=== PATIENT | female | born 1975 | race African-American/Black ===

== ENCOUNTER 2020-08-29 15:50 | Outpatient (REF) | payer OTHER, SELFPAY | END 2020-08-29 15:51 | disposition home or self-care (01) | LOC: HO.LAB 15:50 | PROVIDERS: Visit Provider Internal Medicine | DX: Z20.828 Contact with and (suspected) exposure to other viral communicable diseases (principal) | CPT/HCPCS: C9803; U0003 ==

== ENCOUNTER 2021-11-28 07:46 | Outpatient (REF) | payer OTHER, SELFPAY ==
--- NOTE | ~2021-11-28 | MM_ITS ---
EXAMINATION: MM SCREENING DIGITAL BREAST TOMOSYNTHESIS, BILATERAL CLINICAL INFORMATION: Screening. Asymptomatic. Benign left breast biopsy 06/02/2015 (Fibroadipose tissue and glandular breast tissue with focally dense sclerotic stroma. A fibroadenoma cannot be excluded. Focal sclerosing adenosis is also noted. No evidence of malignancy). The lifetime risk of breast cancer based on the Tyrer-Cuzick Model is 9%. COMPARISON: Mammography: 04/14/2019, 04/10/2018, 02/06/2016, 06/02/2015, 05/27/2015 TECHNIQUE: Digital breast tomosynthesis is performed in both the craniocaudal and mediolateral oblique views along with computer-aided detection (CAD). Synthesized 2D images are generated from the tomosynthesis. FINDINGS: There are scattered areas of fibroglandular density (ACR BI-RADS breast composition Category b). There are no significant masses, abnormal calcifications, or other abnormalities. Breast tissue composition borders on heterogeneously dense. There are scattered shifting fibroglandular parenchymal densities overall similar to prior studies. Biopsy clip marker noted on left anterior 6:00 position. There are no significant changes. MM/MM tomosynthesis screening BI IMPRESSION: There are no significant changes from prior study. ASSESSMENT: BI-RADS 2: Benign RECOMMENDATION: Routine annual mammography screening. This patient's information was entered into a reminder system with a target due date for their next mammogram.
== END 2021-11-28 07:47 | disposition home or self-care (01) ==
LOC: HO.MAMMO 07:46
PROVIDERS: PCP Registered Nurse Community Health; Visit Provider Registered Nurse Community Health
DX: Z12.31 Encounter for screening mammogram for malignant neoplasm of breast (principal)
CPT/HCPCS: 77063; 77067

== ENCOUNTER 2023-08-28 19:46 | Outpatient (REF) | payer OTHER, SELFPAY ==
[2023-08-31 13:45] LABS: H Pylori Breath Test Negative (Negative)
== END 2023-08-28 19:47 | disposition home or self-care (01) ==
LOC: HO.HHCLNP 19:46
PROVIDERS: Visit Provider Family Medicine
DX: R10.13 Epigastric pain (principal)
CPT/HCPCS: 83013

== ENCOUNTER 2023-09-04 13:27 | Outpatient (REF) | payer OTHER, SELFPAY ==
[2023-09-04 14:43] LABS: Hematocrit 35.4 % (37.0-47.0); Hemoglobin 11.7 g/dl (12.0-16.0); Mean Corpuscular HGB Conc 33.1 g/dl (31.0-35.0); Mean Corpuscular Hemoglobin 29.7 pg (27.0-33.0); Mean Corpuscular Volume 89.8 fL (80.0-98.0); Mean Platelet Volume 9.6 fL (9.4-12.3); Platelet Count 320 X10*3/uL (160-400); Red Blood Count 3.94 X10*6/uL (4.20-5.50); Red Cell Distribution Width 12.3 % (11.0-16.0); White Blood Count 6.1 X10*3/uL (4.8-10.8)
[2023-09-04 15:14] LABS: Alanine Aminotransferase 11 U/L (0-31); Albumin Level 3.7 g/dL (3.5-5.0); Alkaline Phosphatase 55 U/L (39-117); Amylase 65 U/L (28-100); Anion Gap 12 (12-20); Aspartate Amino Transferase 14 U/L (5-31); Bilirubin Direct 0.1 mg/dL (0.0-0.5); Bilirubin Total 0.3 mg/dL (0.0-1.0); Blood Urea Nitrogen 11 mg/dL (9-16); Carbon Dioxide 24 mmol/L (22-29); Chloride 107 mmol/L (96-108); Estimated Glomerular Filt Rate > 60; Glucose Random 80 mg/dL (60-115); Lipase 29 U/L (8-78); Sodium 139 mmol/L (135-145); Total Protein 7.5 g/dL (6.5-8.0)
== END 2023-09-04 13:28 | disposition home or self-care (01) ==
LOC: HO.LAB 13:27
PROVIDERS: PCP Registered Nurse Community Health; Visit Provider Family Medicine
DX: R10.13 Epigastric pain (principal)
CPT/HCPCS: 36415; 80048; 80076; 82150; 83690; 85027

== ENCOUNTER 2024-06-20 08:54 | Outpatient (REF) | payer OTHER, SELFPAY ==
[2024-06-20 09:35] LABS: Hematocrit 36.1 % (37.0-47.0); Hemoglobin 11.8 g/dl (12.0-16.0); Mean Corpuscular HGB Conc 32.7 g/dl (31.0-35.0); Mean Corpuscular Hemoglobin 29.5 pg (27.0-33.0); Mean Corpuscular Volume 90.3 fL (80.0-98.0); Mean Platelet Volume 9.4 fL (9.4-12.3); Platelet Count 282 X10*3/uL (160-400); Red Cell Distribution Width 12.1 % (11.0-16.0); White Blood Count 5.6 X10*3/uL (4.8-10.8)
[2024-06-20 09:43] LABS: Estimated Average Glucose 114 mg/dL; Hemoglobin A1c % 5.6 % (<6.0)
[2024-06-20 10:19] LABS: Alanine Aminotransferase 19 U/L (0-31); Albumin Level 3.7 g/dL (3.5-5.0); Alkaline Phosphatase 69 U/L (39-117); Anion Gap 11 (12-20); Aspartate Amino Transferase 15 U/L (5-31); Bilirubin Direct < 0.2 mg/dL (0.0-0.5); Bilirubin Total 0.2 mg/dL (0.0-1.0); Blood Urea Nitrogen 12 mg/dL (9-16); Calcium 9.5 mg/dL (8.4-10.2); Carbon Dioxide 23 mmol/L (22-29); Chloride 108 mmol/L (96-108); Cholesterol 212 mg/dL (<200); Estimated Glomerular Filt Rate > 60; Glucose Random 112 mg/dL (60-115); HDL Cholesterol 47 mg/dL (>40); LDL Cholesterol Calculated 147 mg/dL (<100); Potassium 4.4 mmol/L (3.3-5.1); Sodium 138 mmol/L (135-145); Total Protein 7.7 g/dL (6.5-8.0); Triglycerides 93 mg/dL (<150)
[2024-06-20 10:38] LABS: Free T4 (Free Thyroxine) 1.12 ng/dL (0.71-1.85); Thyroid Stimulating Hormone 0.36 uIU/mL (0.32-4.0); Vitamin D 25-OH Total 19.8 ng/mL (>30)
[2024-06-20 10:51] LABS: Creatinine Urine 188.56 mg/dL; Microalbum/Creatinine Ratio Ur 6.8 ug/mg cr (<30)
== END 2024-06-20 08:55 | disposition home or self-care (01) ==
LOC: HO.LAB 08:54
PROVIDERS: PCP Family Medicine; Visit Provider Family Medicine
DX: I10 Essential (primary) hypertension (principal); Z13.1 Encounter for screening for diabetes mellitus
CPT/HCPCS: 36415; 80048; 80061; 80076; 82043; 82306; 82570; 83036; 84439; 84443; 85027

== ENCOUNTER → 2024-07-08 13:56 | Outpatient (REF) | payer OTHER, SELFPAY ==
--- NOTE | ~2024-07-08 | US_ITS ---
EXAMINATION: US EXTRACRANIAL CAROTID DUPLEX, BILATERAL CLINICAL INFORMATION: Dizziness COMPARISON: Thyroid uptake and scan 08/31/2015 TECHNIQUE: Real-time ultrasound and Doppler techniques (integrating B-mode 2-D vascular images, Doppler spectral analysis and color-flow Doppler imaging) were utilized to interrogate the extracranial carotid arteries, the vertebral arteries and proximal subclavian arteries bilaterally. The degree of stenosis is determined by criteria similar to NASCET. FINDINGS: Right Side: 1. There is no visible atherosclerotic plaque seen in the bifurcation/proximal ICA region. 2. The common carotid artery PSV proximally is 95.7 cm/s and distally 71.6 cm/s. 3. The proximal internal carotid artery velocities are 120 cm/s systolic and 52.5 cm/s diastolic. 4. The proximal external carotid artery PSV is 72 cm/s. 5. The vertebral artery shows antegrade flow. 6. The subclavian artery waveforms are normal. Left Side: 1. There is no visible atherosclerotic plaque seen in the bifurcation/proximal ICA region. 2. The common carotid artery PSV proximally is 122 cm/s and distally 89.5 cm/s. 3. The proximal internal carotid artery velocities are 102 cm/s systolic and 37.1 cm/s diastolic. 4. The proximal external carotid artery PSV is 52.1 cm/s. 5. The vertebral artery shows antegrade flow. 6. The subclavian artery waveforms are normal. Incidentally at the mid to lower pole of the right thyroid lobe there is a 1.1 x 0.8 x 0.9 cm nodule Size: 1.1 x 0.8 x 0.9 cm, Nodule characteristics: Composition: Solid (2). Echogenicity: Hypoechoic (2). Shape: Not taller than wide (0). Margins: Smooth (0). Echogenic Foci: None (0). ACR TI-RADS total points: 4 ACR TI-RADS category: TR 4 There is also a nodule identified at the upper pole of the left thyroid lobe Size: 1.5 x 0.7 x 1.2 cm, Nodule characteristics: Composition: Solid (2). Echogenicity: Hypoechoic (2). Shape: Not taller than wide (0). Margins: Smooth (0). Echogenic Foci: None (0). ACR TI-RADS total points: 4 ACR TI-RADS category: 4 US/US carotid duplex BI IMPRESSION: 1. RIGHT: Normal right internal carotid artery without atherosclerotic plaque or hemodynamically significant stenosis. 2. LEFT: Normal left internal carotid artery without atherosclerotic plaque or hemodynamically significant stenosis. 3. There are incidental bilateral thyroid nodules, each of which would be a TIRADS Category 4 nodule, the larger nodule is on the left at the upper pole and measures 1.5 cm in greatest dimension. Ideally, further evaluation could be obtained with dedicated thyroid ultrasound. ACR TI-RADS RECOMMENDATION REFERENCE: Ultrasound-guided fine-needle aspiration, followup ultrasound, no further follow up. * TR1 (0 point) and TR2 (2 points): No FNA or follow up. * TR3 (3 points): FNA if more than or equal to 2.5 cm in maximum dimension, followup ultrasound in 1, 3 and 5 years if 1.5 to 2.4 cm in maximum dimension. * TR4 (4-6 points): FNA if more than or equal to 1.5 cm in maximum dimension, followup ultrasound in 1, 2, 3 and 5 years if 1 to 1.4 cm in maximum dimension. * TR5 (more than or equal to 7 points): FNA if more than or equal to 1 cm in maximum dimension, followup ultrasound every year for 5 years if 0.5 to 0.9 cm in maximum dimension. * TR3, TR4 or TR5 nodules that are below the size threshold for followup receive no follow up. Electronically signed by: Steven Becerra MD 07/16/2024 02:55 PM EDT
--- NOTE | 2024-07-08 14:11 | CA_ITS ---
Transthoracic Echocardiogram Patient (Last, First, Middle): Stacie Coronado A Gender: Female Date of : 1975 Age: 48 Procedure Date: 07/08/2024 Procedure Type: Transthoracic Echocardiogram Location: OP Height: 154.94 cm Weight: 82.56 kg BSA: 1.81 m2 Heart Rate: bpm BP: 116 / 76 mmHg Underwear Trimmer: ANG Referring MD: Priyanka Hernandez DO Symptoms: NEW ONSET DIZZINESS Study Quality: Adequate ECG Rhythm: Sinus Conclusions: - The left ventricular systolic function is normal. The calculated ejection fraction is 57% by biplane method. - No obvious valvular pathology seen on this study. Findings Left Ventricle Normal left ventricular cavity size. There is normal left ventricular wall thickness. The left ventricular systolic function is normal. The calculated ejection fraction is 57% by biplane method. There is no evidence of regional wall motion abnormalities. Diastolic function is normal for age. Right Ventricle Normal right ventricular cavity size and systolic function. Atria Both atria are normal in size. Aortic Valve There is a normal trileaflet aortic valve. There is no aortic valve stenosis. There is no aortic valve regurgitation. Mitral Valve The mitral valve appears normal. There is no mitral valve regurgitation. There is no mitral valve stenosis. Pulmonic Valve The pulmonic valve is likely normal. Tricuspid Valve There is trace tricuspid valve regurgitation. There is no evidence of pulmonary hypertension. Great Vessels The asc aorta and aortic arch are normal in size. Venous The inferior vena cava is normal in size and collapses greater than 50% with inspiration. Pericardium/Pleural There is no evidence of pericardial effusion. Prior Study Comparison No significant change compared to prior study dated: 05/19/2018. Recommendations, Care & Conclusions No obvious valvular pathology seen on this study. Measurements 2D Linear Measurements IVSd: 0.96 0.6-0.9/0.6-1.0 cm LVIDd: 4.81 3.9-5.3/4.2-5.9 cm LVIDd Index: 2.66 2.4-3.2/2.2-3.1 cm/m2 LVIDs: 3.36 2.0-3.6 cm LVPWd: 0.84 0.7-1.1 cm LA Diam: 3.90 2.7-3.8/3.0-4.0 cm LAIDs Index: 2.15 1.5-2.3 cm/m2 LV Mass: 184.62 67-162/88-224 g LV Mass Index: 102.00 43-95/49-115 g/m2 LVOT Diam: 2.00 3.0+(-)1.3 cm 2D Systolic Function EF 4C: 57.60 >55% EF 2C: 58.80 >55% EF BiP: 56.90 >55% Mitral Valve MV Pk E: 0.87 MV PK A: 0.69 MV Decel Time: 231.00 E/A: 1.30 E'Lateral: 11.20 E'Medial: 7.51 E/E' Med: 11.60 E/E' Lat: 7.80 PHT: 68.00 MVA PHT: 3.24 Decel [place]: 3.78 Aortic Valve AoV Pk Casey: 1.39 AoV Mn Casey: 1.06 AoV VTI: 0.32 AoV Pk Grad: 8.00 Aov Mn Grad: 5.00 RITA Cont.VTI: 2.14 LVOT LVOT Pk Casey: 0.99 LVOT Mn Casey: 0.70 LVOT VTI: 0.22 LVOT Pk Grad: 4.00 LVOT Mn Grad: 2.00 LVOT Diam: 2.00 LVOT Area: 3.14 Diastolic Function MV Pk E: 0.87 MV Pk A: 0.69 E/A: 1.30 E'Medial: 7.51 E/E' Med: 11.60 E' Laterial: 11.20 E/E' Lat: 7.80 Right Ventricle TAPSE (mm): 24.00 TVS' Casey: 11.50 Tricuspid Valve TR Pk Casey: 2.10 TR Pk Grad: 18.00 RA Press: 3.00 RVSP: 21.00 Great Vessels Aorta Sinus of Valsalva: 3.28 2.0-3.[address] [place]: 2.44 1.7-3.4 cm Ao Asc: 3.10 2.1-3.4 cm Ao Arch: 2.80 Updated in Other Vendor System with Status of Final Mike Rodriguez MD electronically signed on 07/09/2024 11:47:10 AM with status of Final
== END ==
LOC: HO.CARD 13:56
PROVIDERS: PCP Family Medicine; Visit Provider Family Medicine
DX: R42 Dizziness and giddiness (principal)
CPT/HCPCS: 93306; 93880

== ENCOUNTER → 2024-07-08 14:11 | Outpatient (BNV) | payer OTHER, SELFPAY | PROVIDERS: PCP Family Medicine; Visit Provider Internal Medicine | DX: R42 Dizziness and giddiness (principal) | CPT/HCPCS: 93306 ==

== ENCOUNTER 2024-07-09 07:45 | Outpatient (REF) | payer OTHER, SELFPAY ==
--- NOTE | ~2024-07-09 | CT_ITS ---
EXAMINATION: CT HEAD WITHOUT CONTRAST CLINICAL INFORMATION: New onset dizziness. COMPARISON: CT head from 07/10/2014. TECHNIQUE: Contiguous axial imaging was performed from the skull base to vertex without intravenous administration of contrast. This CT examination was performed using dose optimization techniques as appropriate, variously including the following: *Automated exposure control. *Adjustment of mA and/or kV according to patient size (this includes techniques or standardized protocols for targeted exams where dose is matched to indication/reason for exam; i.e. extremities or head). *Use of iterative reconstruction technique. DLP: 769 mGy-cm FINDINGS: There is no evidence of acute intracranial hemorrhage or edematous territorial infarction. Nelson-white matter differentiation is preserved. There is no abnormal attenuation within the brain parenchyma. The ventricles are normal in morphology and size. No evidence for obstructive hydrocephalus. Moderate expansion of the sella turcica with flattening of the pituitary gland. No abnormal mass effect or midline shift. No extra-axial fluid collections. Right-sided BAHA bone anchor in place. No acute soft tissue or osseous abnormalities. Mild mucosal thickening of the paranasal sinuses. The mastoid air cells and middle ear cavities are clear. CT/CT head/brain wo IV con IMPRESSION: No evidence of acute intracranial hemorrhage or edematous territorial infarction. Electronically signed by: Rajeev Ramachandran DO 09/02/2024 04:25 AM EST
== END 2024-07-09 07:46 | disposition home or self-care (01) ==
LOC: HO.CT 07:45
PROVIDERS: PCP Family Medicine; Visit Provider Family Medicine
DX: R42 Dizziness and giddiness (principal)
CPT/HCPCS: 70450

== ENCOUNTER 2024-11-04 12:17 | Outpatient (REF) | payer OTHER, SELFPAY ==
--- OUTSIDE RECORDS SUMMARY | 2024-11-04 13:50 | XMS_ITS | Encounter Summary ---
Author Organization [employer] Address [address] [place] [address] Care Team Providers Care Prize Fighter Name Role Phone Fanta Marshall [facility] Primary Care Provider [phone] Encounter Details Date Type Department Care Team ([facility] st Contact Info) Description 11/04/2024 Telephone [facility] [address] [place], [place] [phone] RolandoFanta sheriff [facility] [address] [place] [address] Social History Tobacco Use Types Packs/Day Years Used Date Smoking Tobacco: Former Cigarettes Passive Smoke Exposure: Past Smokeless Tobacco: Never Alcohol Use Standard Drinks/Week Comments Never 0 (1 standard drink = 0.6 oz pur e alcohol) Depression Answer Date Recorded Patient Health Questionnaire-9 Score 0 07/22/2024 Patient Health Questionnaire-9 Score 0 07/22/2024 Last PHQ-9: Questionnaire Data Not on file 1 Housing Stability Answer Date Recorded What is your housing situation today? I have law aj 07/22/[address] you li ve. Do you have problems with any of the following? None of the above 07/22/2024 Food Insecurity Answer Date Recorded Within the past 12 months, y ou worried that your food would run out before you got money to buy more: Never True 07/22/2024 Within the past 12 months,th e food you bought just didn't last and you didn't have enough money to get more: Never True Transportation Answer Date Recorded In the past 12 months, has l ack of transportation kept you from medical appts, meetings, work or from getting things needed for daily living? No 07/22/2024 Utilities Answer Date Recorded In the past 12 months, has t he electric, gas, oil or water company threatened to shut off services in your home? Yes 10/07/2024 Depression Answer Date Recorded Patient Health Questionnaire-2 Score 0 07/22/2024 Internet Access Answer Date Recorded Internet Access Q1 Yes 07/22/2024 Internet Access Q2 I do not want or need it 06/25 Comments Unknown Sex and Gender Information Value Date Recorded Sex Assigned at Female 07/23/2022 10:24 AM EDT Legal Sex Female 10:24 AM EDT Gender Identity Female 07/23/2022 10:24 AM EDT Sexual Orientation Choose not to disclose 2021 10:24 AM EDT documented as of this encounter Miscellaneous Notes * Telephone Encounter - Farzaneh Roberto - 11/04/2024 10:55 AM EST Pt walked in for appt pt pcp is assigned to somewhere else. Pt said she is aware she called yesterday and they said they was switch it for today. I informed pt she might get a bill for today's appt .Pt said she should be lee set for her appt. documented in this encounter Plan of Treatment Not on file documented as of this encounter Visit Diagnoses Not on filedocumented in this encounter Additional Health Concerns Assessment Noted Time PHQ-9 Depression Total Score: 0 07/22/20 24 10:15 AM EDT documented as of this encounter Care Teams Prize Fighter Relationship Specialty Start Date End Date Fanta Marshall FNP [address] [place] [address] PCP - General Family Medicine 03/21/22 documented as of this encounter
--- OUTSIDE RECORDS SUMMARY | 2024-11-04 13:50 | XMS_ITS | Encounter Summary ---
Author Organization [employer] Address [address] [place] [address] 7 [place] [address] Care Team Providers Care Engineer Of System Development Name Role Phone Spencer [facility] Primary Care Provider Reason for Visit * Reason Comments Transfer Care Encounter Details Date Type Department Care Team ([facility] Contact Info) Description 11/04/2024 11:00 AM EST Office Visit [facility] [address] [place], [place] [phone] Spencer [facility] [address] [place], [place] [phone] Dysuria (Primary Dx); Encounter for immunization Social History Tobacco Use Types Packs/Day Years Used Date Smoking Tobacco: Former Cigarettes Passive Smoke Exposure: Past Smokeless Tobacco: Never Tobacco Cessation:Counseling Given: Not Answered Alcohol Use Standard Drinks/Week Comments Never 0 [...] AM EDT documented as of this encounter Last Filed Vital Signs Vital Sign Reading Time Taken Comments Blood Pressure 135/94 11/04/2024 11:01 AM EST Pulse 80 11/04/2024 11:01 AM EST Temperature 36.6 ??C (97.8 ??F) 11/04/2024 11:[address] Respiratory Rate 16 11/04/2024 11:01 AM EST Oxygen Saturation - - Inhaled Oxygen Concentration - - Weight 86.7 kg (191 lb 3.2 oz) 11/04/2024 11:01 AM EST Height 154.9 cm (5' 1 ) 11/04/2024 11:01 AM EST Body Mass Index 36.13 11/04/2024 11:01 AM EST documented in this encounter Plan of Treatment Scheduled Orders Name Type Priority Associated Diagnoses Orde r Schedule Urinalysis, Complete, with Reflex to Culture Lab Routine Dysuria Expected: 11/04/2024 (Approximate), Expires: 11/04/2025 documented as of this encounter Visit Diagnoses Diagnosis Dysuria- Primary Encounter for immunization documented in this encounter Additional Health Concerns Assessment Noted Time PHQ-9 Depression Total Score: 0 07/22/20 24 10:15 AM EDT documented as of this encounter Care Teams Engineer Of System Development Relationship Specialty Start Date End Date Fanta Marshall FNP [address] [place] [id number] PCP - General Family Medicine 03/21/22 documented as of this encounter
--- OUTSIDE RECORDS SUMMARY | 2024-11-04 13:50 | XMS_ITS | Encounter Summary ---
Author Organization [employer] Address [address] [place] [address] 7 [place] [address] Care Team Providers Care Receptionist Scheduler Name Role Phone [facility] Primary Care Provider [phone] Reason for Visit * Reason Comments Pre-visit Planning SDOH screening compl eted on 10/07/2024 Encounter Details Date Type Department Care Team ([facility] st Contact Info) Description 10/26/2024 Patient Outreach [facility] [address] [place], [place] [phone] [facility] [address] [place] [address] Pre-visit Planning (SDOH screening completed on 10/07/2024) Social History Tobacco Use Types Packs/Day Years [...] AM EDT documented as of this encounter Progress Notes * Jacey Jeffers - 10/26/2024 2:39 PM EST CC Jacey Hoang placed successful outbound call to patient for pre-visit planning. Patient name and confirmed. Patient confirms appt date and time, and has transportation arrangements. Biggest concern for appointment at this time is no concerns. Patient advised to bring to appointment a photo id and insurance card. Appropriate screenings completed in anticipation of appointment. documented in this encounter Plan of Treatment Not on file documented as of this encounter Visit Diagnoses Not on filedocumented in this encounter Additional Health Concerns Assessment Noted Time PHQ-9 Depression Total Score: 0 07/22/20 24 10:15 AM EDT documented as of this encounter Care Teams Receptionist Scheduler Relationship Specialty Start Date End Date Fanta Marshall FNP [address] [place] [id number] PCP - General Family Medicine 03/21/22 documented as of this encounter
--- OUTSIDE RECORDS SUMMARY | 2024-11-04 13:50 | XMS_ITS | Clinical Summary ---
Author Organization [facility] Address [address] [place] [address] Care Team Providers Care Virtual Assistant Name Role Phone Gus Vasquez MD Primary Care Provider [phone] Social History Tobacco Use Types Packs/Day Years Used Date Smoking Tobacco: Never Assessed Comments Unknown Sex and Gender Information Value Date Recorded Sex Assigned at Not on file Legal Sex Female 8:05 AM EST Gender Identity Not on file Sexual Orientation Not on file Plan of Treatment Health Maintenance Due Date Last Done Comments Breast Cancer Screening 1975 DTaP,Tdap,and Td Vaccines (1 - Tdap) 1992 Hepatitis B Vaccines (1 of 3 - 19+ 3-dose series) 1992 Cervical Cancer Screening: P ap Smear 1994 Colorectal Cancer Screening: Colonoscopy 08/26/2022 Depression Screening 08/26/2022 HIV Screening 08/26/2022 Hepatitis C Screening 08/26/2022 Social Influencers of Health Screening 08/26/2022 Pneumococcal Vaccine: 50+ Ye ars (1 of 1 - PCV) 2023 Zoster Vaccines (1 of 2) 2023 COVID-19 Vaccine (1 - 2023-2 5 season) 2024 Influenza Vaccine (#1) 2024 HIB Vaccines Aged Out No longer eligi ble based on patient's age to complete this topic HPV Vaccines Aged Out No longer eligi ble based on patient's age to complete this topic Hepatitis A Vaccines Aged Out No long er eligible based on patient's age to complete this topic IPV Vaccines Aged Out No longer eligi ble based on patient's age to complete this topic MMR Vaccines Aged Out No longer eligi ble based on patient's age to complete this topic Meningococcal ACWY Vaccine Aged Out N o longer eligible based on patient's age to complete this topic Meningococcal B Vacine Aged Out No lo nger eligible based on patient's age to complete this topic Pneumococcal Vaccine: Pediat rics (0 to 5 Years) and At-Risk Patients (6 to 64 Years) Aged Out No longer eligible b ased on patient's age to complete this topic RSV Immunization Patients Un dianna 20 months Aged Out No longer eligible b ased on patient's age to complete this topic Varicella Vaccines Aged Out No longer eligible based on patient's age to complete this topic Care Teams Virtual Assistant Relationship Specialty Start Date End Date Gus Vasquez MD [address] [place] [address] [address] [place] PCP - General Internal Medicine 04/04/17
--- OUTSIDE RECORDS SUMMARY | 2024-11-04 13:50 | XMS_ITS | Encounter Summary ---
Author Organization [employer] Address [address] [place] [address] Care Team Providers Care Grinder Set Up Operator External Name Role Phone Fanta Marshall [facility] Primary Care Provider [phone] Encounter Details Date Type Department Care Team ([facility] st Contact Info) Description 11/03/2024 Telephone [facility] [address] [place], [place] [phone] RolandoFanta sheriff [facility] [address] [place] [address] Social History Tobacco Use Types Packs/Day Years [...] * Telephone Encounter - Farzaneh Roberto - 11/03/2024 3:10 PM EST Called pt to inform them that their insurance is active but pcp assigned should be switched to [facility] , I informed pt all she needs to do is call her insurance and ask them to assign her as pcp and she should be all set for tomorrow appt if it switched. documented in this encounter Plan of Treatment Not on file documented as of this encounter Visit Diagnoses Not on filedocumented in this encounter Additional Health Concerns Assessment Noted Time PHQ-9 Depression Total Score: 0 07/22/20 24 10:15 AM EDT documented as of this encounter Care Teams Grinder Set Up Operator External Relationship Specialty Start Date End Date [place] Fanta [facility] [address] [place] [address] PCP - General Family Medicine 03/21/22 documented as of this encounter
--- OUTSIDE RECORDS SUMMARY | 2024-11-04 13:50 | XMS_ITS | Clinical Summary ---
Author Organization [employer] Address [address] [place] [address] 7t [place] [address] Care Team Providers Care Cube Cutter Name Role Phone Fanta Marshall TEACHER CITIZENSHIP Primary Care Provider [phone] Allergies Active Allergy Reactions Criticality Noted Date Comments Ibuprofen Hives 08/28/2023 Ketorolac Tromethamine Hives 08/28/2023 Other 08/28/2023 Other reaction(s): potatoes - hives Medications SUMAtriptan (Imitrex) 50 MG tabletIndication s:Other migraine without status migrainosus, not intractable take 1 tablet by oral route after onset of migraine; may repeat after 2 hours if headache returns,not to exceed 200mg in 24hrs as needed 9 tablet 5 3 Active Acetaminophen Extra Strength 500 MG tablet TAKE 1 TABLET (500MG) BY ORAL ROUTE EVERY 6 HOURS NEEDED 30 tablet 3 Active senna (Senokot) 8.6 MG tablet Take 2 tablets (17.2 mg) by mouth if needed at bedtime for constipation. 60 tablet 3 Active Additional Information Patient not taking.Reported on 06/17/2024 omeprazole (PriLOSEC) [address] Belcher ns:Dyspepsia Take 1 capsule (20 mg) by mouth before breakfast and before evening meal. take 1 capsule by oral route every day before a meal as needed for reflux 180 capsule 1 3 Active Additional Information Patient not taking.Reported on 06/17/2024 hydroCHLOROthiaz mina (HYDRODiuril) 25 MG tablet Take 1 tablet (25 mg) by mouth Once per day. 30 tablet 3 4 06/11/20 Active Additional Information Patient not taking.Reported on 06/17/2024 loratadine (Claritin) 10 MG tablet Take 1 tablet (10 mg) by mouth Once per day. 30 tablet 3 4 06/11/20 Active Additional Information Patient not taking.Reported on 06/17/2024 Blood Pressure kitIndications:E levated blood pressure reading Use to check blood pressure once daily and when symptomatic 1 kit Active fluticasone (Flonase) 50 MCG/ACT nasal sprayIndications :Benign paroxysmal positional vertigo, unspecified laterality Administer 1 spray into each nostril Once per day. Shake gently. Before first use, prime pump. After use, clean tip and replace cap. 16 g 2 4 07/22/20 Active Active Problems Problem Noted Date Diagnosed Date Alopecia 10/24/2018 08/28/2023 Hematochezia 06/05/2018 08/28/2023 Prolapse of female genital organs 06/05/2018 08/28/2023 Vitamin D deficiency 06/05/2018 08/28/2023 Polyp of corpus uteri 02/10/2018 08/28/2023 Seasonal allergies 02/05/2018 08/28/2023 Dyslipidemia 12/27/2017 08/28/2023 Anxiety 12/23/2017 08/28/2023 Benign tumor of breast 12/23/[address] 12/23/20172022 Insomnia 12/23/2017 08/28/2023 Migraine 12/23/2017 08/28/2023 BMI 36.0-36.9,adult 12/23/2017 08/28/2023 Snoring 12/23/2017 08/28/2023 Subclinical hyperthyroidism 12/23/201702/2023 Overview (06/17/2024): No results found for: TSH Resolved Problems Problem Noted Date Diagnosed Date Resolved Date Acute laryngitis 08/28/2023 08/28/2023 08/28/2023 Pneumonia due to infectious organism 08/28/202302/202308/28/2023 Elevated blood-pressure read ing without diagnosis of hypertension 10/24/2018 08/28/2023 08/28/2023 Encounters Date Type Department Care Team Description 11/04/2024 11:00 AM EST Office Visit [address] [address] Fanta Marshall FNP Dysuria (Primary Dx); Encounter for immunization 11/04/[address] [address] Fanta Marshall FNP 11/04/2024 Travel 11/03/[address] [address] Fanta Marshall FNP 10/26/2024 Patient Outreach [address] [address] Fanta Marshall FNP Pre-visit Planning (SDOH screening completed on 10/07/2024) 10/07/2024 Patient Outreach [address] [address] Fanta Marshall FNP Care Coordination (CHW outreach for SDOH utilities and food needs-referral completed /) 10/07/2024 Patient Outreach [address] [address] Fanta Marshall FNP Pre-visit Planning (SDOH screening positive and tobacco screening negative) 09/22/2024 11:30 AM EST Office Visit [facility] [address] [place] [address] Caro Maldonado 09/09/[address] [address] Fanta Marshall FNP Stable Imaging Letter from Last 3 Months Immunizations Name Administration Dates Next Due Influenza Injectable Quadriv alant Preservative Free IIV4 MDCK 08/16/2021 Influenza injectable quadriv alent IIV4 with preservative 06/03/2019,06/04/2018 Influenza injectable quadriv alent preservative free 06/12/2023,08/01/2022,07/15/2020 Influenza, seasonal, injecta ble, preservative free 05/29/2024 Pfizer Covid-19 Vaccine 12+ 11/04/2024 Pneumococcal Conjugate PCV 13 02/05/2018 Pneumococcal Conjugate PCV 20 11/04/2024 Pneumococcal Polysaccharide PPSV23 06/05/2018, Tdap 05/21/2016 Social History Tobacco Use Types Packs/Day Years [...] your housing situation today? I have law madai 07/22/[address] you li [...] not to disclose 2021 10:24 AM EDT Last Filed Vital Signs Vital Sign Reading Time Taken Comments Blood Pressure 135/94 11/04/2024 11:01 AM EST Pulse 80 11/04/2024 11:01 AM EST Temperature 36.6 ??C (97.8 ??F) 11/04/2024 11:[address] Respiratory Rate 16 11/04/2024 11:01 AM EST Oxygen Saturation 98% 06/11/2024 12:01 PM EDT Inhaled Oxygen Concentration - - Weight 86.7 kg (191 lb 3.2 oz) 11/04/2024 11:01 AM EST Height 154.9 cm (5' 1 ) 11/04/2024 11:01 AM EST Body Mass Index 36.13 11/04/2024 11:01 AM EST Plan of Treatment Health Maintenance Due Date Last Done Comments CT Colonography 1973 Colonoscopy 1973 Colorectal Cancer Screening 1973 Dental Prophylaxis 1973 FIT DNA/Cologuard 1973 FIT 1973 FOBT 1973 HIV Screening 1973 Sigmoidoscopy 1973 Alcohol/Substance Use Screening 1985 Family Planning (PISQ) 1988 Hepatitis C Screening 1991 Hepatitis B Vaccines (1 of 3 - 19+ 3-dose series) 1992 Pap Smear 1994 Cervical Cancer Screening 2003 HPV/Cotest 2003 Dental Oral Exam 04/20/2021 10/20/2020, , 12/28/2016, Additional history exists Dental X-Ray: Bitewings 10/21/2021 10/20/19 21, 01/13/2019, 12/28/2016 Zoster Vaccines (1 of 2) 2023 Dental X-Ray: Full Mouth 10/21/2023 10/20/2020, 04/0 03/2017 Mammogram 11/29/2023 11/28/2021, 0712/2018, 04/11/2018 Depression Screening 07/22/2025 07/22/2024, 07/22/20 24 SDOH Screening 10/07/2025 10/07/2024 Tobacco Screening 11/04/2025 11/04/2024 DTaP/Tdap/Td Vaccines (2 - Td or Tdap) 05/21/2026 05/21/2016 Lipid Panel 06/20/2029 06/20/2024, 03/0 04/2022, 01/27/2021 RSV Patients and Patients Aged 60 years or older (1 - 1-dose 75+ series) 2048 Influenza Vaccine Completed 05/29/2024, , 08/01/2022, Additional history exists COVID-19 Vaccine Completed 11/04/2024, , 01/02/2021 Pneumococcal Vaccine: 50+ Years Completed 11/04/2024, 06/05/2018, 02/05/2018, Additional history exists HIB Vaccines Aged Out No longer eligi [...] patient's age to complete this topic Meningococcal Vaccine Aged Out No hilaria david eligible based on patient's age to complete this topic RSV under 20 months Aged Out No longe r eligible based on patient's age to complete this topic Rotavirus Vaccines Aged Out No longer eligible based on patient's age to complete this topic Procedures Procedure Name Priority Date/Time Associated Diagnosis Comments INTRAORAL - PERIAPICAL FIRST RADIOGRAPHIC IMAGE Routine 09/22/2024 11:30 AM EST ADJUNCTIVE GENERAL SERVICES - UNCLASSIFIED TREATMENT - PALLIATIVE TREATMENT OF DENTAL PAIN - PER VISIT Routine 09/22/2024 11:30 AM EST LIPID PANEL, STANDARD Routine 06/20/2024 9:09 AM EDT Essential hypertension MAMMOGRAM GENERIC Routine 11/28/2021 8:0 5 AM EST DIAGNOSTIC - DIAGNOSTIC IMAGING - INTRAORAL - COMPREHENSIVE SERIES OF RADIOGRAPHIC IMAGES Routine 10/20/2020 12:00 AM EST PERIODIC ORAL EVALUATION - ESTABLISHED PATIENT Routine 10/20/2020 12:00 AM EST from Last 3 Months or Most Recently Relevant to Health Maintenance Results * (ABNORMAL) Lipid Panel, Standard (06/20/2024 9:09 AM EDT) Triglycerides 93 <150 mg/dL [facility] Comment:Desirable Triglyceri de: less than 150 mg/dLBorderline High Triglyceride 150-199 mg/dLHigh Triglyceride: 200-499 mg/dLVery High Triglyceride: greater than or equal to 5OO mg/dL Cholesterol 212(H) <200 mg/dL [facility] Comment:Desirable Cholestero l: less than 200 mg/dLBorderline High Cholesterol: 200-239 mg/dLHigh Cholesterol: greater than 239 mg/dL LDL Cholesterol Calculated 147(H) <100 mg/dL [facility] Comment:Desirable LDL: less than 100 mg/dLNear Optimal/Above Optimal LDL: 110- 129 mg/dLBorderline High LDL: 130-159 mg/dLHigh LDL: 160-189 mg/dLVery High LDL: greater than or equal to 190 mg/dL HDL Cholesterol 47 >40 mg/dL [facility] Comment:Desirable HDL: great er than 40 mg/dL Note: This HDL assay may give artificially low results in patients with liver disease. Blood Venous blood specimen / Unknown 06/20/2024 9:09 AM EDT 06/20/2024 9:09 AM EDT Priyanka Hernandez DO LAB BLOOD ORDERABLES Final R esult [facility] [address] [place] [phone] * Mammography Report 1 (11/28/2021 8:05 AM EST) Anatomical Region Laterality Modality Breast Bilateral Mammography 11/28/2021 8:05 AM EST Narrative 11/29/2021 8:10 AM EST Refer to the Notes tab for result details [facility] Procedure: Mammography Report 1 Procedure Note Provider, MD Guilherme - 12/16/2022 Refer to the Notes tab for result details [facility] Procedure: Mammography Report 1 Ayanna Weinberg BRICK BAKER IMG BI PROCEDURES Final Result from Last 3 Months or Most Recently Relevant to Health Maintenance Insurance Care Teams Cube Cutter Relationship Specialty Start Date End Date Fanta Marshall FNP [address] [place] [address] PCP - General Family Medicine 03/21/22
--- OUTSIDE RECORDS SUMMARY | 2024-11-04 13:50 | XMS_ITS | Encounter Summary ---
Author Organization [employer] Address [address] [place] [address] [address]t [place] [address] Care Team Providers Care Freight Hustler Name Role Phone [place] [facility] Primary Care Provider [phone] Reason for Visit * Reason Comments Care Coordination CHW outreach for SDO H utilities and food needs-referral completed Encounter Details Date Type Department Care Team (Latest Contact Info) Description 10/07/2024 Patient Outreach [facility] [address] [place] [address] [facility] [address] [place] [address] Care Coordination (CHW outreach for SDOH utilities and food needs-referral completed /) Social History Tobacco Use Types Packs/Day Years [...] as of this encounter Progress Notes * Estuardo Randolph - 10/07/2024 10:46 AM EST CHW Estuardo Randolph, placed outbound call to patient for assistance with SDOH as a referral was received by the provider. Patient's name and were confirmed. Patient screened positive for the following SDOH utilities and food insecurities. CHW referral patient to the local list of pantries in the area for help. Patient verbalizes understanding, and able to agree with plan to follow up. Patienteducated on extended clinic hours on Mondays through Wednesdays, and Walk-In Urgent Care Located inLobby of [facility]. Patient provided with after-hours line for [facility], , which offer night time triage service and option to transfer to integration developer provider if needed. documented in this encounter Plan of Treatment Not on file documented as of this encounter Visit Diagnoses Not on filedocumented in this encounter Additional Health Concerns Assessment Noted Time PHQ-9 Depression Total Score: 0 07/22/20 24 10:15 AM EDT documented as of this encounter Care Teams Freight Hustler Relationship Specialty Start Date End Date RolandoFantaDENIS [address] [place] [address] PCP - General Family Medicine 03/21/22 documented as of this encounter
--- OUTSIDE RECORDS SUMMARY | 2024-11-04 13:50 | XMS_ITS | Encounter Summary ---
Author Organization [employer] Address [address] [facility] 7t [place] [address] Care Team Providers Care Distribution Associate Name Role Phone Fanta Marshall DERRICK BOAT LEVER OPERATOR Primary Care Provider [phone] Encounter Details Date Type Department Care Team (Latest Contact Info) Description 11/04/2024 Travel Social History Tobacco Use Types Packs/Day Years [...] is your housing situation today? I have lawcheyenne aj 07/22/[address] you [...] AM EDT documented as of this encounter Plan of Treatment Not on file documented as of this encounter Visit Diagnoses Not on filedocumented in this encounter Additional Health Concerns Assessment Noted Time PHQ-9 Depression Total Score: 0 07/22/20 24 10:15 AM EDT documented as of this encounter Care Teams Distribution Associate Relationship Specialty Start Date End Date Fanta Marshall FNP [address] [place] [address] PCP - General Family Medicine 03/21/22 documented as of this encounter
--- OUTSIDE RECORDS SUMMARY | 2024-11-04 13:50 | XMS_ITS | Encounter Summary ---
Author Organization [employer] Address [address] [place] [address] 7 [address] Floor [address] Care Team Providers Care Financial Professional Name Role Phone [facility] Primary Care Provider Reason for Visit * Reason Comments Pre-visit Planning SDOH screening posit srinivasan and tobacco screening negative Encounter Details Date Type Department Care Team ([facility] st Contact Info) Description 10/07/2024 Patient Outreach [facility] [address] [place], [place] [phone] [facility] [address] [place], [place] [phone] Pre-visit Planning (SDOH screening positive and tobacco screening negative) Social History Tobacco Use Types Packs/Day Years [...] as of this encounter Progress Notes * Saray Molina - 10/07/2024 9:01 AM EST CC Saray placed successful outbound call to patient for pre-visit planning. Patient name and confirmed. Patient confirms appt date and time, and has transportation arrangements. Biggest concern for appointment at this time is none Appropriate screening completed in anticipation of appointment.Patient advised to bring to appointment a photo id and insurance card, SDOH positive. Patient looking for assistance with utility shut off notice for water services Referral will be placed. documented in this encounter Plan of Treatment Not on file documented as of this encounter Visit Diagnoses Not on filedocumented in this encounter Additional Health Concerns Assessment Noted Time PHQ-9 Depression Total Score: 0 07/22/20 24 10:15 AM EDT documented as of this encounter Care Teams Financial Professional Relationship Specialty Start Date End Date Fanta Marshall FNP [address] [place] [address] PCP - General Family Medicine 03/21/22 documented as of this encounter
[2024-11-04 13:53] LABS: Appearance Urine Clear; Color Urine Yellow; Glucose Urine UA Negative (Negative); Leukocyte Esterase Urine Small (1+) (Negative); Nitrite Urine Negative (Negative); Specific Gravity - Urine 1.025 (1.005-1.025); UMIC TRIGGER UACC YES; Urine Blood Negative (Negative); Urine Ketones Negative (Negative); Urine Protein Negative (Neg-Trace)
[2024-11-04 13:59] LABS: Bacteria Urine None Seen (None Seen); Hyaline Casts Urine 0-2 /LPF (0-2); RBC Urine 0-2 /HPF (0-2); UACC Culture Trigger YES
== END 2024-11-04 12:18 | disposition home or self-care (01) ==
LOC: HO.HHCL 12:17
PROVIDERS: Visit Provider Registered Nurse
DX: R30.0 Dysuria (principal)
CPT/HCPCS: 81001; 87086

== ENCOUNTER 2024-12-17 15:07 | Outpatient (REF) | payer OTHER, SELFPAY ==
--- OUTSIDE RECORDS SUMMARY | 2024-12-17 18:50 | XMS_ITS | Encounter Summary ---
Author Organization [employer] Address [address] [place] [address] 7t [place] [address] Care Team Providers Care Wood Mechanist Name Role Phone [place] Primary Care Provider [phone] Reason for Visit * Reason Onset Date Comments BP medication 12/08/2024 Encounter Details Date Type Department Care Team ([facility] st Contact Info) Description 12/08/2024 Telephone [facility] [address] [place], [place] [phone] [facility] [address] [place] [address] BP medication Social History Tobacco Use Types Packs/Day Years [...] encounter Miscellaneous Notes * Telephone Encounter - Faith Ortez RN - 12/08/2024 3:47 PM EDT TC placed to patient [phone] in regards to below message. Patient verbalized understanding. Patient to f/u PRN. ----- Message from [facility] sent at 11/30/2024 4:34 PM EDT ----- Lets go ahead and do a low dose of olmesartan 5mg once daily--please queue and let patient know. Thank you! ----- Message ----- From: Faith Ortez RN Sent: 11/19/2024 4:56 PM EDT [facility] Please review rn BP visit and advise. Thank you! documented in this encounter Plan of Treatment Upcoming Encounters Date Type Department Care Team ([facility] st Contact Info) Description 02/01/2025 9:15 AM EDT Procedure Visit [facility] [address] [place] [address] Fanta Marshall FNP [address] [place] [address] documented as of this encounter Visit Diagnoses Not on filedocumented in this encounter Additional Health Concerns Assessment Noted Time PHQ-9 Depression Total Score: 0 07/22/20 24 10:15 AM EDT documented as of this encounter Care Teams Wood Mechanist Relationship Specialty Start Date End Date Fanta Marshall FNP [address] [place] [address] PCP - General Family Medicine 03/21/22 documented as of this encounter
--- OUTSIDE RECORDS SUMMARY | 2024-12-17 18:50 | XMS_ITS | Encounter Summary ---
Author Organization [employer] Address [address] [facility] 7t [place] [address] Care Team Providers Care Carpenter Packing Name Role Phone Fanta Marshall REFRIGERATION SPECIALIST Primary Care Provider [phone] Reason for Visit * Reason Comments Blood Pressure Check Encounter Details Date Type Department Care Team (Latest Contact Info) Description 11/19/2024 3:00 PM EST Clinical Support [facility] [address] [place], [place] [phone] Faith Ortez, RN [address] [place] [address] Essential hypertension [I10] Social History Tobacco Use Types Packs/Day Years [...] Sign Reading Time Taken Comments Blood Pressure 145/90 11/19/2024 3:32 PM EST Pulse 65 11/19/2024 3:32 PM EST Temperature - - Respiratory Rate 20 11/19/2024 3:32 PM EST Oxygen Saturation 98% 11/19/2024 3:32 PM EST Inhaled Oxygen Concentration - - Weight - - Height - - Body Mass Index - - documented in this encounter Progress Notes * Faith Ortez RN - 11/19/2024 3:00 PM EST S: Pt here for BP check nurse visit. At last appointment 11/04/2024,pt's BP noted to be 135/94. Recommendations made on that day were for patient to start taking home BP and focus on low sodium diet and increasing exercising. Pt does not currently have a medication regimen. Today, pt denies any blurred vision, shortness of breath, chest pain, dizziness, or headaches. Pt does not have a BP medication regimen, confirms that BP medications were taken today. Patient denies smoking. O: Left Arm BP 145/90, Pulse 65, RR 20/min and SpO2 98%. Heart tones regular, lungs clear bilaterally, no edema noted, skin warm pink and dry. Patient did present with home BP lo11/06/23-129/94 P87 11/08/23-128/83 P80 11/09/24-122/88 P77 11/10/24-129/89 P91 11/11/24-116/82 P92 11/12/24-138/89 P75 11/13/24-139/87 P83 11/14/24-119/77 P84 11/15/24-124/93 P84 11/16/24-142/90 P91 11/17/24-140/94 P89 11/18/24-138/89 P80 A: No BP medication regimen BP not at goal of <140/90 Reinforcement of Lifestyle modification including low sodium diet and exercise. P: Message sent to provider regarding BP findings. Orders at this time are to continue monitoring BP at home and RN will return call to patient with updated POC once provider reviews BP note. Pt advised to follow a low fat/sodium diet and exercise as tolerated. Pt to f/u with PCP as needed. Pt agrees with plan and verbalized understanding. Faith Ortez RN documented in this encounter Plan of Treatment Upcoming Encounters Date Type Department Care Team (Late st Contact Info) Description 02/01/2025 9:15 AM EDT Procedure Visit [facility] [address] [place] [address] HartfordFanta FNP [address] [place] [address] documented as of this encounter Visit Diagnoses Diagnosis Essential hypertension [I10] Unspecified essential hypertension documented in this encounter Additional Health Concerns Assessment Noted Time PHQ-9 Depression Total Score: 0 07/22/20 24 10:15 AM EDT documented as of this encounter Care Teams Carpenter Packing Relationship Specialty Start Date End Date Fanta Marshall FNP [address] [place] [address] PCP - General Family Medicine 03/21/22 documented as of this encounter
--- OUTSIDE RECORDS SUMMARY | 2024-12-17 18:50 | XMS_ITS | Encounter Summary ---
Author Organization [employer] Address [address] [place] [address] 7t [place] [address] Care Team Providers Care Editor City Name Role Phone Fanta Marshall PHYSICAL DESIGN ENGINEER Primary Care Provider [phone] Reason for Visit * Reason Onset Date Comments Medication Question 12/01/2024 Encounter Details Date Type Department Care Team ([facility] st Contact Info) Description 12/01/2024 Refill [facility] [address] [place], [place] [phone] Kristy Perales RN [address] [place] [address] Essential hypertension Social History Tobacco Use Types Packs/Day Years [...] encounter Miscellaneous Notes * Telephone Encounter - Kristy Perales RN - 12/01/2024 9:59 AM EDT TC placed to pt., informed pt. PCP reviewed recent BP visit note and would like pt. To take a low dose of once daily olmesartan to lower BP. Pt. Verbalizes understanding and Will continue to check BPat home at least three times weekly and call clinic if BP readings >140/90 persist. documented in this encounter Plan of Treatment Upcoming Encounters Date Type Department Care Team (Late st Contact Info) Description 02/01/2025 9:15 AM EDT Procedure Visit [facility] [address] [place] [address] Fanta Marshall FNP [address] [place] [address] documented as of this encounter Visit Diagnoses Diagnosis Essential hypertension Unspecified essential hypertension documented in this encounter Additional Health Concerns Assessment Noted Time PHQ-9 Depression Total Score: 0 07/22/20 24 10:15 AM EDT documented as of this encounter Care Teams Editor City Relationship Specialty Start Date End Date Fanta Marshall FNP [address] [place] [address] PCP - General Family Medicine 03/21/22 documented as of this encounter
--- OUTSIDE RECORDS SUMMARY | 2024-12-17 18:50 | XMS_ITS | Clinical Summary ---
Author Organization [facility] Address [address] [place] [address] Care Team Providers Care Center Human Resources Manager Name Role Phone Gus Vasquez MD Primary Care Provider Social History Tobacco Use Types Packs/Day Years [...] age to complete this topic Care Teams Center Human Resources Manager Relationship Specialty Start Date End Date Gus Vasquez MD [address] [place] [address] Dr [address] [place] PCP - General Internal Medicine 04/04/17
--- OUTSIDE RECORDS SUMMARY | 2024-12-17 18:50 | XMS_ITS | Encounter Summary ---
Author Organization [employer] Address [address] [facility] 7t [place] [address] Care Team Providers Care Managed Care Specialist Name Role Phone Fanta Marshall BOILER/CHILLER TECHNICIAN Primary Care Provider [phone] Encounter Details Date Type Department Care Team (Latest Contact Info) Description 11/19/2024 Travel Social History Tobacco Use Types Packs/Day [...] as of this encounter Plan of Treatment Upcoming Encounters Date Type Department Care Team (Late st Contact Info) Description 02/01/2025 9:15 AM EDT Procedure Visit [facility] [address] [place] [address] Fanta Marshall FNP [address] [place] [address] documented as of this encounter Visit Diagnoses Not on filedocumented in this encounter Additional Health Concerns Assessment Noted Time PHQ-9 Depression Total Score: 0 07/22/20 24 10:15 AM EDT documented as of this encounter Care Teams Managed Care Specialist Relationship Specialty Start Date End Date Fanta Marshall FNP [address] [place] [address] PCP - General Family Medicine 03/21/22 documented as of this encounter
--- OUTSIDE RECORDS SUMMARY | 2024-12-17 18:50 | XMS_ITS | Clinical Summary ---
Author Organization [employer] Address [address] [place] [address] 7t [place] [address] Care Team Providers Care Beater Boss Name Role Phone Fanta Marshall NETWORK DESKTOP SUPPORT SPECIALIST Primary Care Provider [phone] Allergies Active Allergy Reactions Criticality Noted Date [...] 6 HOURS NEEDED 30 tablet 3 Active Blood Pressure kitIndications:E levated blood pressure reading Use to check blood pressure once daily and when symptomatic 1 kit 4 Active fluticasone (Flonase) 50 MCG/ACT nasal sprayIndications :Benign paroxysmal positional vertigo, unspecified laterality Administer 1 spray into each nostril Once per day. Shake gently. Before first use, prime pump. After use, clean tip and replace cap. 16 g 2 4 07/22/20 25 Active olmesartan (Benicar) 5 MG tabletIndication s:Essential hypertension Take 1 tablet (5 mg) by mouth Once per day. 90 tablet 3 5 12/03/19 26 Active Active Problems Problem Noted Date Diagnosed Date Benign paroxysmal positional vertigo 11/09/2024 Essential hypertension 11/09/2024 Alopecia 10/24/2018 08/28/2023 Hematochezia 06/05/2018 08/28/2023 Prolapse [...] Encounters Date Type Department Care Team Description 12/08/2024 Telephone [facility] [address] [facility] [place] [address] Fanta Marshall FNP BP medication 12/01/2024 Refill [facility] [address] [facility] [place] [address] Kristy Perales, ANTONELLA Essential hypertension 11/19/2024 3:00 PM EST Clinical Support [facility] [address] [facility] [address] Faith Ortez, ANTONELLA Essential hypertension [I10] 11/19/2024 Travel 11/10/2024 Telephone [facility] [address] [facility] [place] [address] Fanta Marshall FNP Results 11/04/2024 11:00 AM EST Office Visit [address] [address] Fanta Marshall FNP Essential hypertension (Primary Dx); Thyroid nodule; Bilateral low back pain, unspecified chronicity, unspecified whether sciatica present; Dizziness; Encounter for immunization; Encounter for screening mammogram for breast cancer; Dietary counseling; Exercise counseling; Class 2 severe obesity due to excess calories with serious comorbidity and body mass index (BMI) of 38.0 to 38.9 in adult ([facility]) 11/04/[address] [address] Fanta Marshall FNP 11/04/2024 Travel 11/03/[address] [address] Fanta Marshall FNP 10/26/2024 Patient Outreach [address] [address] Fanta Marshall FNP Pre-visit Planning (SDOH screening completed on 10/07/2024) 10/07/2024 Patient Outreach [address] [address] Fanta Marshall FNP Care Coordination (CH[facility] outreach for SDOH utilities and food needs-referral completed /) 10/07/2024 Patient Outreach [address] [address] Fanta Marshall FNP Pre-visit Planning (SDOH screening positive and tobacco screening negative) 09/22/2024 11:30 AM EST Office Visit [facility] [address] [place] [address] Caro Maldonado from Last 3 Months Immunizations Name Administration [...] Pulse 65 11/19/2024 3:32 PM EST Temperature 36.6 ??C (97.8 ??F) 11/04/2024 11:[address] Respiratory Rate 20 11/19/2024 3:32 PM EST Oxygen Saturation 98% 11/19/2024 3:32 PM EST Inhaled Oxygen Concentration - - Weight 86.7 kg (191 lb 3.2 oz) 11/04/2024 11:01 AM EST Height 154.9 cm (5' 1 ) 11/04/2024 11:01 AM EST Body Mass Index 36.13 11/04/2024 11:01 AM EST Plan of Treatment Upcoming Encounters Date Type Department Care Team (Late st Contact Info) Description 02/01/2025 9:15 AM EDT Procedure Visit [facility] [address] [place], [place] [phone] [facility] [address] [place], [place] [phone] Health Maintenance Due Date Last Done Comments [...] 2023 Dental X-Ray: Full Mouth 10/21/2023 10/20/2020, 0403/2017 Mammogram 11/29/2023 11/28/2021, 03/24, 04/11/2018 Depression Screening 07/22/2025 07/22/2024, 07/22/20 SDOH Screening 10/07/2025 10/07/2024 Tobacco Screening 11/09/2025 11/09/2024 DTaP/Tdap/Td Vaccines (2 - Td or Tdap) [...] Procedure Name Priority Date/Time Associated Diagnosis Comments URINALYSIS, COMPLETE, WITH REFLEX TO CULTURE Routine 11/04/2024 12:18 PM EST Bilateral low back pain, unspecified chronicity, unspecified whether sciatica present CULTURE, URINE, ROUTINE Routine 11/04/2024 12:00 AM EST BPPV (benign paroxysmal positional vertigo), bilateral INTRAORAL - PERIAPICAL FIRST RADIOGRAPHIC IMAGE Routine 09/22/2024 11:30 AM EST PALLIATIVE (EMERGENCY) TREATMENT OF DENTAL PAIN - MINOR PROCEDURE Routine 09/22/2024 11:30 AM EST LIPID PANEL, STANDARD Routine 06/20/2024 9:09 AM EDT Essential hypertension MAMMOGRAM GENERIC Routine 11/28/2021 8:0 5 AM EST INTRAORAL - COMPLETE SERIES OF RADIOGRAPHIC IMAGES Routine 10/20/2020 12:00 AM EST PERIODIC ORAL EVALUATION - ESTABLISHED PATIENT Routine 10/20/2020 12:00 AM EST from Last 3 Months or Most Recently Relevant to Health Maintenance Results * (ABNORMAL) Urinalysis, Complete, with Reflex to Culture (11/04/2024 12:18 PM EST) Color Urine Yellow [facility] Appearance Urine Clear [facility] PH 6.0 5.0 - 9.0 [facility] Glucose Urine UA Negative Negative mg/dL [facility] Urine Blood Negative Negative [facility] Specific [place] - Urine 1.025 1.005 - 1.025 [facility] Urine Protein Negative Neg-Trace mg/dL [facility] Urine Ketones Negative Negative mg/dL [facility] Nitrite Urine Negative Negative [facility] Leukocyte Esterase Urine Small (1+)(A) Negative [facility] RBC Urine 0-2 0 - 2 /HPF [facility] Urine WBC 6-10(A) 0 - 5 /HPF [facility] Urine Squamous Epithelial Cell 6-10 0 - 2 /HPF [facility] Urine Bacteria None Seen None Seen [facility] Hyaline Casts, Urine 0-2 0 - 2 /LPF [facility] Urine 11/04/2024 12:1 8 PM EST 11/04/2024 1:41 PM EST Narrative [facility] - 11/04/2024 2:00 PM EST Urine, Clean Catch [facility] NETWORK DESKTOP SUPPORT SPECIALIST LAB URINE ORDERABLES Final Re sult [facility] [address] [place] [address] [phone] * Culture, Urine, Routine (11/04/2024 12:00 AM EST) Urine Urine specimen obtained by clean catch procedure / Unknown 11/04/2024 11/04/2024 Comment:UACC Narrative [facility] - 11/05/2024 1:02 PM EST Urine Culture Report Result Urine Culture 10,000 to 50,000 cfu/ml Urine Culture Mixed bacterial dariana characteristic of Urine Culture urogenital contamination. Specimen Source: Urine clean catch [facility] LAB MICROBIOLOGY - GENERAL OR DERABLES Final Result [facility] [address] [place] [address] [phone] * (ABNORMAL) Lipid Panel, Standard (06/20/2024 9:09 AM EDT) Triglycerides 93 <150 mg/dL [facility] Comment:Desirable Triglyceri de: less than 150 mg/dLBorderline High Triglyceride 150-199 mg/dLHigh Triglyceride: 200-499 mg/dLVery High Triglyceride: greater than or equal to 5OO mg/dL Cholesterol 212(H) <200 mg/dL [facility] Comment:Desirable Cholestero l: less than 200 mg/dLBorderline High Cholesterol: 200-239 mg/dLHigh Cholesterol: greater than 239 mg/dL LDL Cholesterol Calculated 147(H) <100 mg/dL [facility] Comment:Desirable LDL: less than 100 mg/dLNear Optimal/Above Optimal LDL: 110- 129 mg/dLBorderline High LDL: 130-159 mg/dLHigh LDL: 160-189 mg/dLVery High LDL: greater than or equal to 190 mg/dL HDL Cholesterol 47 >40 mg/dL [facility] Comment:Desirable HDL: great er than 40 mg/dL Note: This HDL assay may give artificially low results in patients with liver disease. Blood Venous blood specimen / Unknown 06/20/2024 9:09 AM EDT 06/20/2024 9:09 AM EDT Priyanka Jurcsak DO LAB BLOOD ORDERABLES Final R esult [facility] [address] [place] [phone] [phone] * Mammography Report 1 (11/28/2021 8:05 AM EST) Anatomical Region Laterality Modality Breast Bilateral Mammography 11/28/2021 8:05 AM EST Narrative 11/29/2021 8:10 AM EST Refer to the Notes tab for result details [facility] Procedure: Mammography Report 1 Procedure Note Provider, MD Guilherme - 12/16/2022 Refer to the Notes tab for result details [facility] Procedure: Mammography Report 1 Ayanna Weinberg NP IMG BI PROCEDURES Final Result from Last 3 Months or Most Recently Relevant to Health Maintenance Insurance [facility] , [address] [place] [address] DENTAL - [employer] PPO Care Teams Beater Boss Relationship Specialty Start Date End Date [place], Fanta, DENIS [address] [place] [address] PCP - General Family Medicine 03/21/22
== END 2024-12-17 15:08 | disposition home or self-care (01) ==
LOC: HO.MAMMO 15:07
PROVIDERS: PCP Registered Nurse; Visit Provider Registered Nurse
DX: Z12.31 Encounter for screening mammogram for malignant neoplasm of breast (principal)
CPT/HCPCS: 77063; 77067

== ENCOUNTER → 2024-12-17 15:15 | Outpatient (BNV) | payer OTHER, SELFPAY | PROVIDERS: PCP Registered Nurse; Visit Provider Internal Medicine | DX: Z12.31 Encounter for screening mammogram for malignant neoplasm of breast (principal) | CPT/HCPCS: 77063; 77067 ==

== ENCOUNTER 2025-02-01 16:42 | Outpatient (REF) | payer OTHER, SELFPAY ==
--- OUTSIDE RECORDS SUMMARY | 2025-02-01 16:44 | XMS_ITS | Clinical Summary ---
Author Organization [facility] Address [address] [place] [address] Care Team Providers Care It Operations Manager Name Role Phone Gus Vasquez MD Primary Care Provider [phone] Social History Tobacco Use Types Packs/Day Years [...] - 2023-2 5 season) 2024 Influenza Vaccine (Season Ended) 2025 HIB Vaccines Aged Out No longer eligi [...] age to complete this topic Meningococcal B Vaccine Aged Out No l onger eligible based on patient's age to complete [...] age to complete this topic Care Teams It Operations Manager Relationship Specialty Start Date End Date Gus Vasquez MD [address] [place] [address] [address] [place] MD PCP - General Internal Medicine 04/04/17
--- OUTSIDE RECORDS SUMMARY | 2025-02-01 16:44 | XMS_ITS | Encounter Summary ---
Author Organization [employer] Address [address] [facility] 7t [place] [address] Care Team Providers Care Keyboard Instrument Repairer Name Role Phone Fanta Marshall [facility] Primary Care Provider Encounter Details Date Type Department Care Team (Latest Contact Info) Description 02/01/2025 9:15 AM EDT Procedure Visit [facility] MED[facility] [address] [place], [place] [phone] Fanta Marshall [facility] [address] [place], [place] [phone] Encounter for Papanicolaou smear for cervical cancer screening (Primary Dx) Social History Tobacco Use Types Packs/Day Years [...] not want or need it 06/25 Comments No Sex and Gender Information Value Date Recorded Sex Assigned at Female 07/23/2022 10:24 AM EDT Legal Sex Female 10:24 AM EDT Gender Identity Female 07/23/2022 10:24 AM EDT Sexual Orientation Choose not to disclose 2021 10:24 AM EDT documented as of this encounter Last Filed Vital Signs Vital Sign Reading Time Taken Comments Blood Pressure 128/70 02/01/2025 9:19 AM EDT Pulse 73 02/01/2025 9:19 AM EDT Temperature 36.2 ??C (97.1 ??F) 02/01/2025 9:19 AM ED T Respiratory Rate 21 02/01/2025 9:19 AM EDT Oxygen Saturation 99% 02/01/2025 9:19 AM EDT Inhaled Oxygen Concentration - - Weight 89.8 kg (198 lb) 02/01/2025 9:19 AM EDT Height 154.9 cm (5' 1 ) 02/01/2025 9:19 AM EDT Body Mass Index 37.41 02/01/2025 9:19 AM EDT documented in this encounter Progress Notes * [facility], BRAKE MACHINE OPERATOR - 02/01/2025 9:15 AM EDT Stacie Coronado is a 49 y.o. year old female patient who presents for routine cervical cancer screening and SURGICAL DENTAL ASSISTANT exam. LMP: 02/01/25, perimenopause Sexually active: Y Partners are: AMAB control: BTL T:3 P:0 A: 1 L: 3 Interval Hx Mammogram: 11/2024 - Birads 2 Social History Social History Narrative Social History: Current living environment: Lives with , 2 daughter Children: 3 Employment/Education: food and beverage operations manager at [employer]; Ticies Tobacco Use: None Alcohol Use: None Marijuana Use: None Other drug use: None Reproductive Health: Sexually Active: Yes Partners are: AMAB Control: BTL REVIEW OF SYSTEMS Review of Systems Constitutional: Negative for fever. HENT: Negative. Respiratory: Negative for shortness of breath. Cardiovascular: Negative for chest pain. Gastrointestinal: Negative for abdominal pain. Genitourinary: Negative for menstrual problem, pelvic pain and vaginal discharge. Neurological: Negative for dizziness and weakness. OBJECTIVE Vitals: 02/01/25 0919 BP: 128/70 Pulse: 73 Resp: 21 Temp: 97.1 ??F (36.2 ??C) SpO2: 99% PHYSICAL EXAM Physical Exam Exam conducted with a processing clerk present. Genitourinary: Labia: Right: No rash or lesion. Left: No lesion. Vagina: Normal. No vaginal discharge or lesions. Cervix: Normal. No cervical motion tenderness or discharge. Uterus: Normal. Not enlarged and not tender. Adnexa: Right adnexa normal. Right: No tenderness or fullness. Left: No tenderness or fullness. ASSESSMENT/PLAN - Pap collected without incident; patient advised that due to presence of menstrual blood, results may be impacted - Pt will be contacted with results-if negative repeat 5 years - Pt accepts routine STI screening - Follow up pending results per ASCCP guidelines. Diagnosis Plan 1. Encounter for Papanicolaou smear for cervical cancer screening Pap Smear STI testing add on (NG, CT, Trich) documented in this encounter Plan of Treatment Upcoming Encounters Date Type Department Care Team (Late st Contact Info) Description 03/24/2025 10:00 AM EDT Office Visit [facility] MEDICINE [address] [place] [address] Fanta Marshall FNP [address] [place] [address] Scheduled Orders Name Type Priority Associated Diagnoses Orde r Schedule Pap Smear Pathology and Cytology Routine Encounter for Papanicolaou smear for cervical cancer screening Ordered: 02/01/2025 STI testing add on (NG, CT, Trich) Pathology and Cytology Routine Encounter for Papanicolaou smear for cervical cancer screening Ordered: 02/01/2025 documented as of this encounter Visit Diagnoses Diagnosis Encounter for Papanicolaou smear for cervical cancer screening- Primary documented in this encounter Additional Health Concerns Assessment Noted Time PHQ-9 Depression Total Score: 0 07/22/20 24 10:15 AM EDT documented as of this encounter Care Teams Keyboard Instrument Repairer Relationship Specialty Start Date End Date Fanta Marshall FNP [address] [place] [id number] PCP - General Family Medicine 03/21/22 documented as of this encounter
--- OUTSIDE RECORDS SUMMARY | 2025-02-01 16:44 | XMS_ITS | Encounter Summary ---
Author Organization [employer] Address [address] [facility] 7t [place] [address] Care Team Providers Care Mend Worker Name Role Phone Fanta Marshall INTERNET SALES REPRESENTATIVE Primary Care Provider [phone] Encounter Details Date Type Department Care Team (Latest Contact Info) Description 02/01/2025 Travel Social History Tobacco Use Types Packs/Day [...] Description 03/24/2025 10:00 AM EDT Office Visit [facility] [address] [place] [address] Fanta Marshall FNP [address] [place] [address] documented as of this encounter Visit Diagnoses Not on filedocumented in this encounter Additional Health Concerns Assessment Noted Time PHQ-9 Depression Total Score: 0 07/22/20 24 10:15 AM EDT documented as of this encounter Care Teams Mend Worker Relationship Specialty Start Date End Date Fanta Marshall FNP [address] [place] [address] PCP - General Family Medicine 03/21/22 documented as of this encounter
--- OUTSIDE RECORDS SUMMARY | 2025-02-01 16:44 | XMS_ITS | Encounter Summary ---
Author Organization [employer] Address [address] [facility] 7t [place] [address] Care Team Providers Care Manager Rn Case Name Role Phone [facility] Primary Care Provider [phone] Reason for Visit * Reason Onset Date Comments Care Coordination 02/01/2025 Encounter Details Date Type Department Care Team ([facility] st Contact Info) Description 02/01/2025 Telephone [facility] [address] [place], [place] [phone] [facility] [address] [place] [address] Care Coordination Social History Tobacco Use Types Packs/Day Years [...] Telephone Encounter - Faith Ortez RN - 02/01/2025 12:51 PM EDT TC placed to patient [phone] to inform of below message. Patient verbalized understanding and was provided phone number to [facility] centralized scheduling to call and r/s thyroid US appointment. Patient informed order is good for one year. Patient to f/u PRN. ----- Message from [facility] sent at 02/01/2025 9:44 AM EDT ----- Hi! I forgot to remind patient that she needs to complete a thyroid ultrasound to follow up on nodule. She was going to call and reschedule appt. When I last talked to her, but I don't see anything in the chart. Please reach out to patient and remind her of this. Thank you! documented in this encounter Plan of Treatment Upcoming Encounters Date Type Department Care Team (Late st Contact Info) Description 03/24/2025 10:00 AM EDT Office Visit [facility] MEDICINE [address] [place] [phone] Fanta Marshall FNP [address] [place] [address] documented as of this encounter Visit Diagnoses Not on filedocumented in this encounter Additional Health Concerns Assessment Noted Time PHQ-9 Depression Total Score: 0 07/22/20 24 10:15 AM EDT documented as of this encounter Care Teams Manager Rn Case Relationship Specialty Start Date End Date Fanta Marshall FNP [address] [place] [address] PCP - General Family Medicine 03/21/22 documented as of this encounter
[2025-02-03 20:18] LABS: C. trachomatis RNA TMA NOT DETECTED (NOT DETECTED); N. gonorrhoeae RNA TMA NOT DETECTED (NOT DETECTED); Trichomonas (NAAT) NOT DETECTED (NOT DETECTED)
[2025-02-04 13:59] LABS: HPV Genotype 16 Negative (Negative); HPV Genotype 18 Negative (Negative); HPV High Risk Negative (Negative)
== END 2025-02-01 16:43 | disposition home or self-care (01) ==
LOC: HO.HHCLNP 16:42
PROVIDERS: Visit Provider Registered Nurse
DX: Z12.4 Encounter for screening for malignant neoplasm of cervix (principal)
CPT/HCPCS: 87491; 87591; 87626; 87661; 88175